=== PATIENT | male | born 1955 | race Caucasian/White ===

== ENCOUNTER → 2017-01-10 | Outpatient (REF) | LOC: ZLAB.WCH 18:29 | DX: Z01.89 Encounter for other specified special examinations (principal) ==

== ENCOUNTER 2018-02-27 20:38 | Inpatient (IN) | payer BC, OTHER ==
[~2018-02-27] VITALS: Ht 177.8 cm; Wt 95.1 kg
[2018-02-27] MEDS ORDERED: LIPITOR 80MG80 MG PO (21:26)
[2018-02-27] MEDS ORDERED: COREG12.5 MG PO (21:26)
[2018-02-27] MEDS ORDERED: ASPIRIN E.C. 8181 MG PO (21:26)
[2018-02-27] MEDS ORDERED: PLAVIX 75MG TAB75 MG PO (21:27)
[2018-02-27] MEDS ORDERED: COENZYME Q-1030 MG PO (21:27)
[2018-02-27] MEDS ORDERED: EPA FISH OIL1 SGL PO (21:28)
[2018-02-27] MEDS ORDERED: GARLIC100 MG PO (21:28)
[2018-02-27] MEDS ORDERED: LASIX 40MG TABL40 MG PO (21:28)
[2018-02-27] MEDS ORDERED: NOVOLOG MIX 70/33 ML SQ (21:29)
[2018-02-27] MEDS ORDERED: JANUVIA50 MG PO (21:30)
[2018-02-27] MEDS ORDERED: ZESTRIL 5MG5 MG PO (21:30)
[2018-02-27] MEDS ORDERED: MULTI VITAMINS1 TAB PO (21:31)
[2018-02-27 22:47] LABS: ARTERIAL BLD GAS O2 SATURATION 96.4 % (92-100); ARTERIAL BLD GAS TCO2 CT 19.7; ARTERIAL BLOOD GAS BASE EXCESS -3.2 (-2-2); ARTERIAL BLOOD GAS HCO3 18.9 meq/L (22-26); ARTERIAL BLOOD GAS PCO2 27.6 mmHg (35-45); ARTERIAL BLOOD GAS PO2 84.9 mmHg (80-100); ARTERIAL BLOOD GAS pH 7.45 (7.35-7.45)
[2018-02-27 22:50] LABS: HEMOGLOBIN 17.1 g/dl (13.5-18.0); MEAN CELL VOLUME 78 fl (80.0-100.0); MEAN CORPUSCULAR HEMOGLOBIN 26 pg (27.0-31.0); MEAN CORPUSCULAR HGB CONC 33 g/dl (33.0-37.0); PLATELET COUNT 168 K/mm3 (130-400); RED BLOOD COUNT 6.68 M/mm3 (4.20-5.60)
[2018-02-27 22:56] LABS: HEMATOCRIT 52.1 % (42.0-52.0); INR 1.3 (0.8-3.0); PROTHROMBIN TIME 14.8 SECONDS (9.7-12.8)
[2018-02-27 22:59] LABS: PARTIAL THROMBOPLASTIN TIME 25.1 SECONDS (26.0-37.0)
[2018-02-27 23:00] LABS: ALANINE AMINOTRANSFERASE 49 U/L (21-72); ALBUMIN 3.6 gm/dL (3.5-5.0); ALKALINE PHOSPHATASE 209 U/L (50-136); ANION GAP 13 mmol/L (7-16); AST,SGOT 74 U/L (15-37); BILIRUBIN,TOTAL 2.1 mg/dL (0.0-1.0); BLOOD UREA NITROGEN 48 mg/dL (9-20); CALCIUM 8.1 mg/dL (8.4-10.2); CARBON DIOXIDE 23 mmol/L (22-30); CHLORIDE 92 mmol/L (98-107); CREATININE, serum 2.56 mg/dL (0.66-1.25); GLUCOSE 343 mg/dL (74-106); LIPASE 267 U/L (23-300); POTASSIUM 4.4 mmol/L (3.4-5.0); SODIUM 128 mmol/L (137-145); TOTAL PROTEIN 7.9 gm/dL (6.4-8.2)
[2018-02-27 23:01] LABS: ALCOHOL(ethanol),MEDICAL < 10 mg/dL
[2018-02-27 23:09] LABS: CREATINE KINASE 2137 U/L (55-170)
[2018-02-27 23:16] LABS: PROLACTIN 28.8 ng/mL (3.7-17.9)
[2018-02-27 23:18] LABS: TROPONIN-I 0.274 ng/mL (0.000-0.034)
[2018-02-27 23:22] LABS: BAND 1 % (0-10); LYMPHOCYTE 12 % (20.0-51.0); NEUTROPHILS 83 % (42.0-75.2)
[2018-02-27 23:23] LABS: ANISOCYTOSIS 1+; MICROCYTOSIS 1+; PLATELET ESTIMATE NORMAL (NORMAL)
[2018-02-27 23:24] LABS: POIKILOCYTOSIS 1+
[2018-02-28] VITALS (643 sets, daily range): BP systolic 112–155; BP diastolic 83–118; PULSE 99–119; TEMP 97.9–99.3; O2SAT 77–99
[2018-02-28 03:52] LABS: ACETONE,SERUM NEGATIVE
[2018-02-28 04:19] LABS: TROPONIN-I 0.333 ng/mL (0.000-0.034)
[2018-02-28 05:12] LABS: COLLECTION METHOD CLEAN CATCH
[2018-02-28 05:19] LABS: MUCOUS Present /lpf; PH 5 (5-8); SQUAMOUS EPITHELIAL 0-2 /hpf; URINE APPEARANCE Hazy; URINE BACTERIA Rare /hpf; URINE BILIRUBIN Negative (NEGATIVE); URINE BLOOD 3+ (NEGATIVE); URINE COLOR Yellow; URINE GLUCOSE 3+ (NEGATIVE); URINE KETONE Negative (NEGATIVE); URINE LEUKOCYTE ESTERASE Negative (NEGATIVE); URINE NITRATE Negative (NEGATIVE); URINE PROTEIN(semi-quant) 3+ (NEGATIVE); URINE RBC 0-2 /hpf; URINE UROBILINOGEN Negative (NEGATIVE)
[2018-02-28 05:26] LABS: TRICYCLIC ANTIDEPRESS URINE NEGATIVE
[2018-02-28 07:15] LABS: HEMATOCRIT 47.2 % (42.0-52.0); HEMOGLOBIN 15.5 g/dl (13.5-18.0); MEAN CELL VOLUME 78 fl (80.0-100.0); MEAN CORPUSCULAR HEMOGLOBIN 26 pg (27.0-31.0); MEAN CORPUSCULAR HGB CONC 33 g/dl (33.0-37.0); MEAN PLATELET VOLUME 10.3 fl (7.4-10.4); PLATELET COUNT 148 K/mm3 (130-400); RED BLOOD COUNT 6.09 M/mm3 (4.20-5.60); REDCELL DISTRIBUTION WIDTH-CV 17.5 % (11.5-14.5)
[2018-02-28 07:30] LABS: BILIRUBIN,TOTAL 1.7 mg/dL (0.0-1.0); CALCIUM 7.6 mg/dL (8.4-10.2); CHOLESTEROL RISK RATIO 7.8; CREATININE, serum 2.2 mg/dL (0.66-1.25); MAGNESIUM 2.2 mg/dL (1.6-2.3); POTASSIUM 3.9 mmol/L (3.4-5.0); TOTAL PROTEIN 6.7 gm/dL (6.4-8.2)
[2018-02-28 07:54] LABS: BAND 8 % (0-10); LYMPHOCYTE 17 % (20.0-51.0); NEUTROPHILS 67 % (42.0-75.2); PLATELET ESTIMATE NORMAL (NORMAL)
[2018-02-28 07:55] LABS: HYPOCHROMIA 1+; MICROCYTOSIS 1+
[2018-02-28 08:29] LABS: PATHOLOGY DIFF REVIEW OK
[2018-02-28] MEDS ORDERED: NORVASC 10MG10 MG PO (12:11)
[2018-02-28 12:22] LABS: PARTIAL THROMBOPLASTIN TIME 27.8 SECONDS (26.0-37.0)
[2018-02-28 20:23] LABS: URINE PROTEIN:CREAT RATIO 4.34 (0.00-0.14)
[2018-03-01] VITALS (856 sets, daily range): BP systolic 96–142; BP diastolic 71–108; PULSE 62–114; TEMP 98–101.1; O2SAT 85–100
[2018-03-01 03:50] LABS: HEMOGLOBIN 15.6 g/dl (13.5-18.0); MEAN CELL VOLUME 78 fl (80.0-100.0); MEAN CORPUSCULAR HEMOGLOBIN 25 pg (27.0-31.0); MEAN CORPUSCULAR HGB CONC 33 g/dl (33.0-37.0); MEAN PLATELET VOLUME 10.6 fl (7.4-10.4); PLATELET COUNT 149 K/mm3 (130-400); RED BLOOD COUNT 6.13 M/mm3 (4.20-5.60); REDCELL DISTRIBUTION WIDTH-CV 17.7 % (11.5-14.5)
[2018-03-01 04:00] LABS: ALBUMIN 2.9 gm/dL (3.5-5.0); BILIRUBIN,TOTAL 2.2 mg/dL (0.0-1.0); CALCIUM 7.6 mg/dL (8.4-10.2); CREATININE, serum 1.87 mg/dL (0.66-1.25); POTASSIUM 3.8 mmol/L (3.4-5.0); TOTAL PROTEIN 6.4 gm/dL (6.4-8.2)
[2018-03-01 04:39] LABS: BAND 2 % (0-10); LYMPHOCYTE 17 % (20.0-51.0); NEUTROPHILS 73 % (42.0-75.2); PLATELET ESTIMATE DECREASED (NORMAL)
[2018-03-01 04:40] LABS: HYPOCHROMIA 1+
[2018-03-01 22:33] LABS: ARTERIAL BLD GAS O2 SATURATION 96.9 % (92-100); ARTERIAL BLD GAS TCO2 CT 20.1; ARTERIAL BLOOD GAS BASE EXCESS -2.5 (-2-2); ARTERIAL BLOOD GAS HCO3 19.3 meq/L (22-26); ARTERIAL BLOOD GAS PCO2 26.5 mmHg (35-45); ARTERIAL BLOOD GAS PO2 88.9 mmHg (80-100); ARTERIAL BLOOD GAS pH 7.48 (7.35-7.45)
[2018-03-02] VITALS (456 sets, daily range): BP systolic 101–127; BP diastolic 66–100; PULSE 59–84; TEMP 98.2–100.3; O2SAT 66–100
[2018-03-02 09:02] LABS: HEMATOCRIT 43.6 % (42.0-52.0); HEMOGLOBIN 14.3 g/dl (13.5-18.0); MEAN CELL VOLUME 79 fl (80.0-100.0); MEAN CORPUSCULAR HEMOGLOBIN 26 pg (27.0-31.0); MEAN CORPUSCULAR HGB CONC 33 g/dl (33.0-37.0); MEAN PLATELET VOLUME 10.2 fl (7.4-10.4); PLATELET COUNT 165 K/mm3 (130-400); RED BLOOD COUNT 5.51 M/mm3 (4.20-5.60); REDCELL DISTRIBUTION WIDTH-CV 17.2 % (11.5-14.5)
[2018-03-02 09:15] LABS: ALBUMIN 2.8 gm/dL (3.5-5.0); BILIRUBIN,TOTAL 2.2 mg/dL (0.0-1.0); CALCIUM 7.7 mg/dL (8.4-10.2); CREATININE, serum 1.77 mg/dL (0.66-1.25); POTASSIUM 3.9 mmol/L (3.4-5.0); TOTAL PROTEIN 6.3 gm/dL (6.4-8.2)
[2018-03-03 04:42] VITALS: BP 98/64; PULSE 70; TEMP 98.4
[2018-03-03 06:58] VITALS: BP 105/63; PULSE 69; TEMP 98.5
[2018-03-03 07:11] LABS: ALBUMIN 2.6 gm/dL (3.5-5.0); BILIRUBIN,TOTAL 1.2 mg/dL (0.0-1.0); CALCIUM 7.4 mg/dL (8.4-10.2); CREATININE, serum 1.76 mg/dL (0.66-1.25); POTASSIUM 3.9 mmol/L (3.4-5.0)
[2018-03-03 11:48] VITALS: BP 95/63; PULSE 61; TEMP 98
[2018-03-03 16:30] VITALS: BP 101/63; PULSE 70; TEMP 97.9
[2018-03-03 19:30] VITALS: BP 121/78; PULSE 68; TEMP 98.6
[2018-03-04 00:30] VITALS: BP 129/80; PULSE 76; TEMP 98.1
[2018-03-04 02:33] LABS: HEMATOCRIT 39.3 % (42.0-52.0); HEMOGLOBIN 12.8 g/dl (13.5-18.0); MEAN CELL VOLUME 79 fl (80.0-100.0); MEAN CORPUSCULAR HEMOGLOBIN 26 pg (27.0-31.0); MEAN CORPUSCULAR HGB CONC 33 g/dl (33.0-37.0); PLATELET COUNT 189 K/mm3 (130-400); RED BLOOD COUNT 4.95 M/mm3 (4.20-5.60); REDCELL DISTRIBUTION WIDTH-CV 17.5 % (11.5-14.5)
[2018-03-04 02:45] LABS: CALCIUM 7.6 mg/dL (8.4-10.2); CREATININE, serum 1.67 mg/dL (0.66-1.25); MAGNESIUM 2.5 mg/dL (1.6-2.3); POTASSIUM 3.8 mmol/L (3.4-5.0)
[2018-03-04 03:13] LABS: INR 1.3 (0.8-3.0); PROTHROMBIN TIME 14.3 SECONDS (9.7-12.8)
[2018-03-04 04:00] VITALS: BP 130/56; PULSE 72; TEMP 98.2
[2018-03-04 07:14] VITALS: BP 125/80; PULSE 73; TEMP 98.5
[2018-03-04 11:49] VITALS: BP 101/70; PULSE 59; TEMP 97.9
[2018-03-04 15:03] VITALS: BP 97/61; PULSE 61; TEMP 98.2
[2018-03-04 19:43] VITALS: BP 119/73; PULSE 74; TEMP 99.5
[2018-03-05] VITALS (7 sets, daily range): BP systolic 110–130; BP diastolic 68–96; PULSE 54–82; TEMP 97.6–100.5
[2018-03-05 06:46] LABS: ALANINE AMINOTRANSFERASE 38 U/L (21-72); ALBUMIN 2.5 gm/dL (3.5-5.0); ALKALINE PHOSPHATASE 114 U/L (50-136); ANION GAP 9 mmol/L (7-16); AST,SGOT 20 U/L (15-37); BILIRUBIN,TOTAL 0.7 mg/dL (0.0-1.0); BLOOD UREA NITROGEN 23 mg/dL (9-20); CALCIUM 7.8 mg/dL (8.4-10.2); CARBON DIOXIDE 20 mmol/L (22-30); CHLORIDE 105 mmol/L (98-107); CREATININE, serum 1.67 mg/dL (0.66-1.25); GLUCOSE 142 mg/dL (74-106); MAGNESIUM 2.4 mg/dL (1.6-2.3); POTASSIUM 3.7 mmol/L (3.4-5.0); SODIUM 134 mmol/L (137-145); TOTAL PROTEIN 5.8 gm/dL (6.4-8.2)
[2018-03-05 06:47] LABS: AMMONIA < 9 umol/L (11-35)
[2018-03-05 06:55] LABS: MEAN CELL VOLUME 80 fl (80.0-100.0); MEAN CORPUSCULAR HEMOGLOBIN 26 pg (27.0-31.0); MEAN CORPUSCULAR HGB CONC 32 g/dl (33.0-37.0); MEAN PLATELET VOLUME 10.3 fl (7.4-10.4); PLATELET COUNT 241 K/mm3 (130-400); RED BLOOD COUNT 4.64 M/mm3 (4.20-5.60); REDCELL DISTRIBUTION WIDTH-CV 17.9 % (11.5-14.5)
[2018-03-05 07:07] LABS: INR 1.8 (0.8-3.0)
[2018-03-05 09:37] LABS: ANISOCYTOSIS 1+; BAND 5 % (0-10); EOSINOPHIL 2 % (0-4); LYMPHOCYTE 17 % (20.0-51.0); NEUTROPHILS 67 % (42.0-75.2)
[2018-03-06 05:16] VITALS: BP 100/63; PULSE 58; TEMP 97.4
[2018-03-06 07:20] VITALS: BP 116/78; PULSE 65; TEMP 98
[2018-03-06 08:08] LABS: BASO % 0.4 % (0.0-2.0); EOS # 0.4 (0.0-0.7); EOS % 4.4 % (0-4.0); GRAN # 5.9 (1.4-6.5); GRAN % 62.7 % (42.2-75.2); HEMATOCRIT 38.5 % (42.0-52.0); HEMOGLOBIN 12.7 g/dl (13.5-18.0); LYMPH % 20.7 % (20.0-51.0); MEAN CELL VOLUME 79 fl (80.0-100.0); MEAN CORPUSCULAR HEMOGLOBIN 26 pg (27.0-31.0); MEAN CORPUSCULAR HGB CONC 33 g/dl (33.0-37.0); MEAN PLATELET VOLUME 10.3 fl (7.4-10.4); MONO % 11.1 % (1.7-9.3); PLATELET COUNT 296 K/mm3 (130-400); RED BLOOD COUNT 4.86 M/mm3 (4.20-5.60); REDCELL DISTRIBUTION WIDTH-CV 18.3 % (11.5-14.5)
[2018-03-06 08:17] LABS: CALCIUM 8.3 mg/dL (8.4-10.2); CREATININE, serum 1.64 mg/dL (0.66-1.25); POTASSIUM 3.8 mmol/L (3.4-5.0)
[2018-03-06 08:18] LABS: INR 3.2 (0.8-3.0); PROTHROMBIN TIME 35.9 SECONDS (9.7-12.8)
[2018-03-06 11:06] VITALS: BP 101/63; PULSE 57; TEMP 97.4
[2018-03-06 11:39] VITALS: BP 101/63; PULSE 57; TEMP 97.4
[2018-03-06] MEDS ORDERED: ROCEPHIN VIA1 G/VIAL IV (13:14)
[2018-03-06] MEDS ORDERED: COUMADIN 3MG3 MG/TAB PO (13:15)
[2018-03-06] MEDS ORDERED: COREG12.5 MG PO (13:17)
[2018-03-06] MEDS ORDERED: NAMENDA5 MG PO (13:18)
[2018-03-06] MEDS ORDERED: ASPIRIN E.C. 8181 MG PO (13:18)
[2018-03-06] MEDS ORDERED: ZESTRIL 5MG5 MG PO (13:18)
[2018-03-06] MEDS ORDERED: NOVLOG SQ (13:19)
== END 2018-03-06 15:08 | DRG 871 ==
LOC: COL.ER 20:38 → MEDICAL 23:42 → ICU 23:42 → MEDICAL 03-02 13:34
PROVIDERS: Emergency Medicine; Hospitalist; Internal Medicine; Internal Medicine Nephrology; Nurse Practitioner; Nurse Practitioner Family; Physician Assistant
DX: A41.9 Sepsis, unspecified organism (principal); I50.23 Acute on chronic systolic (congestive) heart failure; I21.A1 Myocardial infarction type 2; J18.9 Pneumonia, unspecified organism; G93.40 Encephalopathy, unspecified; I13.0 Hypertensive heart and chronic kidney disease with heart failure and stage 1 through stage 4 chronic kidney disease, or unspecified chronic kidney disease; I69.351 Hemiplegia and hemiparesis following cerebral infarction affecting right dominant side; N17.9 Acute kidney failure, unspecified; E87.1 Hypo-osmolality and hyponatremia; E87.3 Alkalosis; N18.3 Chronic kidney disease, stage 3 (moderate); I25.10 Atherosclerotic heart disease of native coronary artery without angina pectoris; E11.65 Type 2 diabetes mellitus with hyperglycemia; E11.22 Type 2 diabetes mellitus with diabetic chronic kidney disease; Z79.4 Long term (current) use of insulin; E78.5 Hyperlipidemia, unspecified; T79.6XXA Traumatic ischemia of muscle, initial encounter; I65.22 Occlusion and stenosis of left carotid artery; I27.22 Pulmonary hypertension due to left heart disease; I08.1 Rheumatic disorders of both mitral and tricuspid valves; I25.5 Ischemic cardiomyopathy
CPT/HCPCS: 99223-AI; 99233-AI; 99239; A9539; A9540; J0360; J0456; J0696; J1644; J1815; J1940; J2543; J7030; J7050

== ENCOUNTER 2018-03-16 16:19 | Inpatient (IN) | payer BC ==
[~2018-03-16] VITALS: Ht 175.3 cm; Wt 91.5 kg
[~2018-03-16 16:19] MED LIST: ASPIRIN E.C. 8181 MG PO; COENZYME Q-1030 MG PO; COREG12.5 MG PO; COUMADIN 3MG3 MG/TAB PO; EPA FISH OIL1 SGL PO; GARLIC100 MG PO; JANUVIA50 MG PO; LASIX 40MG TABL40 MG PO; LIPITOR 80MG80 MG PO; MULTI VITAMINS1 TAB PO; NAMENDA5 MG PO; NORVASC 10MG10 MG PO; NOVLOG SQ; NOVOLOG MIX 70/33 ML SQ; PLAVIX 75MG TAB75 MG PO; ROCEPHIN VIA1 G/VIAL IV; ZESTRIL 5MG5 MG PO
[2018-03-18 13:20] VITALS: BP 144/98; PULSE 57; TEMP 98.3
[2018-03-18] MEDS ORDERED: TYLENOL 325MG325 MG PO (14:25)
[2018-03-18] MEDS ORDERED: CORDARONE200 MG/TAB PO (14:27)
[2018-03-18] MEDS ORDERED: DULCOLAX STOOL100 MG PO (14:31)
[2018-03-18] MEDS ORDERED: LASIX 40MG TABL40 MG PO (14:32)
[2018-03-18] MEDS ORDERED: GLUTOSE 1540% PO (14:34)
[2018-03-18] MEDS ORDERED: PROVIGIL 100MG100 MG PO (14:39)
[2018-03-18] MEDS ORDERED: MIRALAX PA17 GM/Dose PO (14:40)
[2018-03-18] MEDS ORDERED: SODIUM BICARBO650 MG PO (14:42)
[2018-03-18] MEDS ORDERED: MICRO-GUARD21 TP (14:43)
[2018-03-18] MEDS ORDERED: HUMALOG100 U/ML SQ (14:48)
[2018-03-18] MEDS ORDERED: COUMADIN 5MG5 MG/TAB PO (15:08)
[2018-03-18 18:24] VITALS: BP 136/90; PULSE 56
[2018-03-19 05:34] VITALS: BP 136/92; PULSE 53; TEMP 98.2
[2018-03-19 11:49] LABS: INR 2.8 (0.8-3.0); PROTHROMBIN TIME 31.4 SECONDS (9.7-12.8)
[2018-03-19 18:00] VITALS: BP 124/91; PULSE 52; TEMP 97.7
[2018-03-20 06:00] VITALS: BP 130/86; PULSE 63; TEMP 97.9
[2018-03-20 06:32] LABS: INR 3.7 (0.8-3.0); PROTHROMBIN TIME 41.9 SECONDS (9.7-12.8)
[2018-03-20 17:22] VITALS: BP 141/89; PULSE 68; TEMP 97.6
[2018-03-21 05:07] VITALS: BP 151/98; PULSE 102; TEMP 98
[2018-03-21 07:12] LABS: BASO # 0.1 (0.0-0.2); BASO % 0.5 % (0.0-2.0); EOS # 0.2 (0.0-0.7); EOS % 2.4 % (0-4.0); GRAN # 6.4 (1.4-6.5); GRAN % 66.9 % (42.2-75.2); HEMATOCRIT 41.5 % (42.0-52.0); HEMOGLOBIN 13.3 g/dl (13.5-18.0); LYMPH # 1.9 (1.2-3.4); LYMPH % 20.3 % (20.0-51.0); MEAN CELL VOLUME 83 fl (80.0-100.0); MEAN CORPUSCULAR HEMOGLOBIN 26 pg (27.0-31.0); MEAN CORPUSCULAR HGB CONC 32 g/dl (33.0-37.0); MEAN PLATELET VOLUME 9.5 fl (7.4-10.4); MONO # 0.9 (0.1-0.6); MONO % 9.5 % (1.7-9.3); PLATELET COUNT 204 K/mm3 (130-400); RED BLOOD COUNT 5.03 M/mm3 (4.20-5.60); REDCELL DISTRIBUTION WIDTH-CV 20.9 % (11.5-14.5)
[2018-03-21 07:42] LABS: CALCIUM 8.8 mg/dL (8.4-10.2); CREATININE, serum 1.67 mg/dL (0.66-1.25); MAGNESIUM 1.9 mg/dL (1.6-2.3); POTASSIUM 4.1 mmol/L (3.4-5.0)
[2018-03-21 12:36] LABS: INR 3.5 (0.8-3.0); PROTHROMBIN TIME 39.9 SECONDS (9.7-12.8)
[2018-03-21 17:37] VITALS: BP 123/79; PULSE 53; TEMP 97.4
[2018-03-22 03:19] VITALS: BP 130/92; PULSE 55; TEMP 97.5
[2018-03-22 08:40] LABS: PROTHROMBIN TIME 34.5 SECONDS (9.7-12.8)
[2018-03-22 17:57] VITALS: BP 122/85; PULSE 51; TEMP 97.9
[2018-03-23 04:04] VITALS: BP 137/87; PULSE 53; TEMP 98.4
[2018-03-23 07:12] LABS: INR 2.5 (0.8-3.0); PROTHROMBIN TIME 28.8 SECONDS (9.7-12.8)
[2018-03-23 16:10] VITALS: BP 117/78; PULSE 50; TEMP 97.8
[2018-03-24 04:53] VITALS: BP 130/82; PULSE 58; TEMP 98.1
[2018-03-24 08:39] LABS: INR 2.6 (0.8-3.0); PROTHROMBIN TIME 29.9 SECONDS (9.7-12.8)
[2018-03-24 15:11] VITALS: BP 117/82; PULSE 54; TEMP 98
[2018-03-25 05:03] VITALS: BP 127/80; PULSE 56; TEMP 98.1
[2018-03-25 08:15] LABS: INR 2.2 (0.8-3.0); PROTHROMBIN TIME 25.5 SECONDS (9.7-12.8)
[2018-03-25 19:23] VITALS: BP 95/62; PULSE 55; TEMP 98.4
[2018-03-26 05:17] VITALS: BP 117/80; PULSE 50; TEMP 98.5
[2018-03-26 06:15] LABS: BASO # 0.1 (0.0-0.2); BASO % 0.7 % (0.0-2.0); EOS # 0.4 (0.0-0.7); EOS % 5.8 % (0-4.0); GRAN # 4.6 (1.4-6.5); GRAN % 60.6 % (42.2-75.2); HEMATOCRIT 39.9 % (42.0-52.0); LYMPH # 1.6 (1.2-3.4); LYMPH % 21.6 % (20.0-51.0); MEAN CELL VOLUME 81 fl (80.0-100.0); MEAN CORPUSCULAR HEMOGLOBIN 27 pg (27.0-31.0); MEAN CORPUSCULAR HGB CONC 33 g/dl (33.0-37.0); MEAN PLATELET VOLUME 8.8 fl (7.4-10.4); MONO # 0.8 (0.1-0.6); MONO % 10.8 % (1.7-9.3); PLATELET COUNT 209 K/mm3 (130-400); REDCELL DISTRIBUTION WIDTH-CV 20.9 % (11.5-14.5)
[2018-03-26 06:24] LABS: CALCIUM 8.6 mg/dL (8.4-10.2); CREATININE, serum 1.84 mg/dL (0.66-1.25); POTASSIUM 4.3 mmol/L (3.4-5.0)
[2018-03-26 17:47] VITALS: BP 123/86; PULSE 52; TEMP 97.6
[2018-03-27 05:11] VITALS: BP 129/88; PULSE 58; TEMP 98.3
[2018-03-27 07:00] LABS: INR 2.9 (0.8-3.0); PROTHROMBIN TIME 32.8 SECONDS (9.7-12.8)
[2018-03-27 17:37] VITALS: BP 121/77; PULSE 57; TEMP 98.1
[2018-03-28 04:54] VITALS: BP 119/80; PULSE 57; TEMP 97.7
[2018-03-28 06:53] LABS: CALCIUM 8.6 mg/dL (8.4-10.2); CREATININE, serum 1.88 mg/dL (0.66-1.25); POTASSIUM 4.2 mmol/L (3.4-5.0)
[2018-03-28 06:54] LABS: INR 2.9 (0.8-3.0); PROTHROMBIN TIME 32.7 SECONDS (9.7-12.8)
[2018-03-28 18:28] VITALS: BP 156/89; PULSE 72; TEMP 97.9
[2018-03-29 06:12] VITALS: BP 146/89; PULSE 53; TEMP 98.5
[2018-03-29 16:19] VITALS: BP 127/91; PULSE 50; TEMP 97.8
[2018-03-30 03:49] VITALS: BP 151/99; PULSE 51; TEMP 98.2
[2018-03-30 06:44] LABS: INR 2.6 (0.8-3.0); PROTHROMBIN TIME 29.8 SECONDS (9.7-12.8)
[2018-03-30 06:51] LABS: CALCIUM 8.7 mg/dL (8.4-10.2); CREATININE, serum 1.75 mg/dL (0.66-1.25); MAGNESIUM 2.1 mg/dL (1.6-2.3); POTASSIUM 4.2 mmol/L (3.4-5.0)
[2018-03-30 16:00] VITALS: BP 135/94; PULSE 56; TEMP 98.6
[2018-03-31 04:02] VITALS: BP 122/83; PULSE 55; TEMP 97.6
[2018-03-31 18:54] VITALS: BP 138/99; PULSE 60; TEMP 98.3
[2018-04-01 05:29] VITALS: BP 114/77; PULSE 53; TEMP 98.4
[2018-04-01 18:00] VITALS: BP 121/76; PULSE 55; TEMP 98.5
[2018-04-02 06:41] VITALS: BP 115/79; PULSE 50; TEMP 97.8
[2018-04-02 06:52] LABS: PROTHROMBIN TIME 40.5 SECONDS (9.7-12.8)
[2018-04-02 07:00] LABS: CALCIUM 8.3 mg/dL (8.4-10.2); CREATININE, serum 1.72 mg/dL (0.66-1.25); POTASSIUM 3.9 mmol/L (3.4-5.0)
[2018-04-02 07:06] LABS: INR 3.6 (0.8-3.0)
[2018-04-02 17:55] VITALS: BP 129/82; PULSE 55; TEMP 97.4
[2018-04-03 06:22] VITALS: BP 119/81; PULSE 46; TEMP 97.8
[2018-04-03] MEDS ORDERED: COUMADIN 2MG2 MG/TAB PO (08:35)
[2018-04-03] MEDS ORDERED: ZESTRIL2.5 MG PO (08:35)
[2018-04-03] MEDS ORDERED: MIRTAZAPINE7.5 MG PO (08:36)
[2018-04-03] MEDS ORDERED: TYLENOL 325MG325 MG PO (08:36)
[2018-04-03] MEDS ORDERED: LASIX 40MG TABL40 MG PO (08:37)
[2018-04-03] MEDS ORDERED: DULCOLAX S10 MG/SUPP RC (08:37)
[2018-04-03] MEDS ORDERED: LEVEMIR FLEX100 U/ML SQ (08:38)
[2018-04-03] MEDS ORDERED: NOVLOG SQ ×2 (08:38)
[2018-04-03] MEDS ORDERED: Patient's Own Medica TOP (08:38)
[2018-04-03 08:43] LABS: INR 3.1 (0.8-3.0); PROTHROMBIN TIME 35.1 SECONDS (9.7-12.8)
[2018-04-03 09:04] VITALS: BP 119/81; PULSE 46; TEMP 97.8
== END 2018-04-03 10:35 | DRG 70 ==
PROVIDERS: Family Medicine; Internal Medicine
DX: G93.40 Encephalopathy, unspecified (principal); J18.9 Pneumonia, unspecified organism; I50.22 Chronic systolic (congestive) heart failure; I69.351 Hemiplegia and hemiparesis following cerebral infarction affecting right dominant side; I13.0 Hypertensive heart and chronic kidney disease with heart failure and stage 1 through stage 4 chronic kidney disease, or unspecified chronic kidney disease; I23.6 Thrombosis of atrium, auricular appendage, and ventricle as current complications following acute myocardial infarction; J81.1 Chronic pulmonary edema; R06.3 Periodic breathing; Z66 Do not resuscitate; E11.22 Type 2 diabetes mellitus with diabetic chronic kidney disease; N18.9 Chronic kidney disease, unspecified; I25.10 Atherosclerotic heart disease of native coronary artery without angina pectoris; F06.31 Mood disorder due to known physiological condition with depressive features
CPT/HCPCS: 99222-AI; 99232-AI; 99239; J1815